=== PATIENT | female | born 1980 | race Caucasian/White ===

== ENCOUNTER → 2024-12-28 16:24 | Outpatient (CLI) | payer OTHER, SELFPAY ==
[2024-12-28 17:19] LABS: HEMOLYSIS < 15 (0-50); Iron 87 ug/dL (37-170)
[2024-12-28 17:31] LABS: Percent Iron Saturation 25 % (15-50); Total Iron Binding Capacity 352 ug/dL (265-497); Transferrin 320 mg/dL (206-381)
[2024-12-28 17:35] LABS: Free T3, Triiodothyronine Free 3.28 pg/mL (2.77-5.27); Free T4, Direct Thyroxine 1.11 ng/dL (0.78-2.19)
[2024-12-28 17:49] LABS: Thyroid Stimulating Hormone 4.54 uIU/mL (0.47-4.68)
[2024-12-28 17:54] LABS: Ferritin 57 ng/mL (6-137)
[2024-12-28 18:25] LABS: Folate 5.8 ng/mL (2.76-20.0); Vitamin B12 363 pg/mL (239-931)
== END ==
PROVIDERS: PCP Student in an Organized Health Care Education/Training Program; Referring Provider Student in an Organized Health Care Education/Training Program; Visit Provider Student in an Organized Health Care Education/Training Program
DX: R53.83 Other fatigue (principal)
CPT/HCPCS: 36415; 82607; 82728; 82746; 83540; 83550; 84439; 84443; 84481